=== PATIENT | female | born 1990 | race Caucasian/White ===

== ENCOUNTER 2019-07-05 16:07 | Observation (INO) ==
--- NOTE | 2019-07-05 16:27 | ERNOTE ---
ER Female HPI Date of Service: 07/05/19 Stated Complaint: Abdominal pain w/bleeding since am Presenting Symptoms: pelvic pain Time Seen by Provider: 07/05/19 16:23 Source: patient Exam Limitations: no limitations Immunizations: IMMUNIZATION HX Immunizations Up to Date No History of Influenza Vaccine No Hx Pneumococcal Vaccination No Allergies/Adverse Reactions: Allergies No Known Allergies Allergy (Unverified 07/05/19 16:16) Home Medications: HOME MEDICATIONS NK 07/05/19 [Last Taken Unknown] Pain Score #1 Pain Score: 10 - History of Present Illness Narrative: 29 yr old G4, P1, SA3 female with history of ectopic in 2006 with subsequent rupture of the related tube - doesn't know which side, and D & C presents with abdominal pain that began 2 hrs ago. Describes this as intermittent cramping that she rates 10/10. Denies any difficulty in urination. Last BM was yesterday. LMP was one month ago and last only 2 days. States she started having right sided low back pain last night. Denies any aggravating or alleviating factors. She is sexually active with a single partner. Denies any control. Reports decreased appetite. Last ate yesterday. Last drank 5 hrs ago. Date (Duration): 07/05/19 Time (Timing): 16:24 Timing: Present: intermittent Quality: Present: severe, cramping Onset Location: Present: other - lower pelvis region bilaterally, right worse than left Radiation: Present: none Activities at Onset: Present: none Prior Abdominal Problems: Present: none Sexual Decherd History: Present: single partner Modifying Factors - (Improves): Present: other - nothing Modifying Factors - (Worsens): Present: other - nothing Associated Symptoms: Present: abdominal pain - lower bilateral , low back pain - right sided . Absent: fever/chills, dysuria, urinary frequency, loss of bladder control Review of Systems - Review of Systems Constitutional: Absent: recent illness, fever, diaphoresis EYE: Present: no symptoms reported ENT: Present: no symptoms reported Respiratory: Present: no symptoms reported Cardiology: Present: no symptoms reported Gastrointestinal/Abdominal: Present: nausea, vomiting, abdominal pain, eating less, drinking less. Absent: diarrhea Genitourinary: Present: other - Noticed blood on toilet paper when she wiped after urinating. . Absent: pain, dysuria Musculoskeletal: Present: back pain - right side Skin: Present: no symptoms reported Neurological: Present: no symptoms reported Endocrine: Present: no symptoms reported Hematologic/Lymphatic: Present: no symptoms reported Psych: Present: no symptoms reported Medical History (Updated 07/05/19 @ 16:17 by Chandler Vines RN) Hx of ectopic Surgical History: Surgical History (Updated 07/05/19 @ 16:17 by Chandler Vines RN) Hx of dilation and curettage Social History: (Last Reviewed 07/05/19 @ 16:57 by RAYNE Mazariegos) Tobacco: Smoking Status: Current every day smoker tobacco type: cigarettes Smoking cigarettes per day: 5 Alcohol: alcohol intake: current alcohol intake frequency: holiday/special occasion Substance Use: substance use type: does not use Physical Exam - Physical Exam General Appearance: Present: wd/wn, alert, no apparent distress Head Exam: Present: normal inspection, no evidence of injury Eye Exam: Normal inspection: bilateral, PERRL: bilateral, EOMI: bilateral Ears, Nose, Throat: Present: normal except - - tongue piercing . Absent: dry mucous membranes Neck: Present: normal inspection Respiratory: Present: no respiratory distress, normal breath sounds, no accessory muscle use, chest nontender, lungs clear Cardiovascular/Chest: Present: regular rate, rhythm, no murmur Gastrointestinal/Abdominal: Present: soft, tenderness - Tenderness to palpation over the mid abdomen and lower abdomen bilaterally, right > left , abnormal bowel sounds - decreased Pelvic Exam: Present: deferred - until after the ultrasound is completed. , other - Normal external female genitalia. Dried blood at the vaginal introitus. Large dark clot noted on her pad. No active bleeding noted. Back Exam: Present: normal inspection, normal range of motion, CVA tenderness (R) Extremity Exam: Present: normal inspection, normal range of motion, no edema Neurological Exam: Present: alert, oriented, normal mood/affect, no motor/sensory deficits Skin Exam: Present: normal color, warm/dry Progress - Results and Orders Patient's Lab Results:: I have reviewed the patient's lab results. Results and Orders: Laboratory Tests 07/05/19 16:35 WBC 23.4 H RBC 3.25 L Hgb 10.3 L Plt Count 274 Laboratory Tests 07/05/19 07/05/19 16:35 16:35 Sodium 135 Potassium 3.9 Carbon Dioxide 21.6 L Anion Gap 15.3 H BUN 8 Creatinine 0.61 BUN/Creatinine Ratio 13.1 Random Glucose 88 Calcium 8.4 Total Bilirubin 0.4 AST 18 ALT 20 Alkaline Phosphatase 64 Albumin 3.1 L Amylase 22 L Lipase 63 L Serum HCG, Qual Positive H - Vital Signs Patient's Vital Signs:: I have reviewed the patient's vital signs. Vital Signs: Vital Signs 07/05/19 16:08 Temperature 36.8 C Pulse Rate 98 Respiratory Rate 20 Blood Pressure 127/73 O2 Sat by Pulse Oximetry 99 - Progress/Reassessment Chief Complaint: Genitourinary Problem Progress Note-Subjective: 07/05/19 17:54 Test results reviewed with patient. Ultrasound called in. The limited radiology technician came back over to report she is seeing a 17 - 18 week viable that is entering into the vaginal canal. I notified Dr. Guzman and asked her to come in. She asked that the patient be moved over to labor and delivery. The patient went straight to OB from ultrasound. - Transfer of Care Physician Sign Out: Jacuqe Curry Brief History: SA 3 29 yr old female with intermittent abdominal cramping. LMP last month only two days. HCG Positive. Quantitative 12,276. Ultrasound reveals 18 week fetus entering the vaginal canal. Receiving Physician: Es Guzman Pending Results: Physician/consult arrival Expected Disposition: Admit Plan - Plan Plan: Patient transferred to OB from ultrasound to Dr Guzman's care. Departure Clinical Impression: 18 weeks gestation of Active labor Qualifiers: Fetus number: single or unspecified fetus Qualified Code(s): O60.10X0 - labor with delivery, unspecified trimester, not applicable or unspecified - Departure Disposition: Still a patient Condition: Good Referrals: NONE,NONE [Staff Physician] -
[2019-07-05] MEDS ORDERED: NORMAL SALINE 1,000 ML IV ONE (16:28)
[2019-07-05] MEDS ORDERED: HYDROmorphone HCL 1 MG/ML DISP.SYRIN IV ONE ×2 (16:30→17:25)
[2019-07-05 16:42] LABS: Hematocrit 30.3 % (37.0-47.0); Hemoglobin 10.3 gm/dL (12.5-16.0); Mean Cell Volume 93.2 fl (78-100); Mean Corpuscular Hemoglobin 31.7 pg (27-31); Mean Platelet Volume 9.8 fl (8-12.5); Platelet Count 274 K/mm3 (150-450); Red Blood Count 3.25 M/mm3 (4.2-5.4); Red Cell Distribution Width 12.7 % (11.5-14.0); White Blood Count 23.4 K/mm3 (4.0-10.5)
[2019-07-05 16:49] LABS: Total Cells Counted 100
[2019-07-05] MEDS ORDERED: ONDANSETRON HCL/PF 2 MG/ML VIAL IV ONE (16:50)
[2019-07-05 16:54] LABS: Albumin * 3.1 gm/dl (3.4-5.0); Anion Gap 15.3 mmol/L (6.8-13.8); BUN/Creatinine Ratio 13.1 (9.0-21.6); Bilirubin, Total 0.4 mg/dL (0.0-1.1); Ca. Corrected For Albumin 8.8 mg/dL (8.4-10.2); Calcium * 8.4 mg/dL (7.9-10.9); Carbon Dioxide 21.6 mmol/L (24-32.6); Potassium 3.9 mmol/L (3.4-4.6); Total Protein 6.8 gm/dL (6.2-8.2)
[2019-07-05 17:11] LABS: Lymphocyte 5 % (20-51); Monocyte 3 % (0-9); Neutrophil 92 % (42-75); Neutrophil # 21.5 K/mm3 (1.3-6.0); Platelet Estimate Normal (NORMAL); RBC Morphology Normal (NORMAL)
--- NOTE | 2019-07-05 19:16 | HP ---
Chief Complaint - Chief Complaint Date of Service: 07/05/19 Time of Service: 19:03 Chief Complaint: Vaginal bleeding and passing clots. Patient did not know she was History of Present Illness: 29 year old at 17w 5d by an ultrasound performed in the emergency department. The ultrasound in the emergency department showed that there was no measurable cervix and the baby was breech and in the ABRIL. The patient reported cramping and vaginal bleeding all day. Denied fever, chills, nausea, vomiting, diarrhea. Medical History (Updated 07/05/19 @ 18:02 by RAYNE Mazariegos) Hx of ectopic Surgical History: Surgical History (Updated 07/05/19 @ 16:17 by Chandler Vines RN) Hx of dilation and curettage Social History: (Last Reviewed 07/05/19 @ 19:07 by Es Guzman MD) Tobacco: Smoking Status: Current every day smoker tobacco type: cigarettes Smoking cigarettes per day: 5 Alcohol: alcohol intake: current alcohol intake frequency: holiday/special occasion Substance Use: substance use type: does not use Review Of Systems (GEN) - Review of Systems Generalized/Overall Review: Present: No Symptoms Reported EENTM: Present: No Symptoms Reported Respiratory: Present: No Symptoms Reported Cardiac: Present: No Symptoms Reported Abdominal: Present: Abdominal Pain Genitourinary: Present: Other - vaginal bleeding Musculoskeletal: Present: No Symptoms Reported Neurological: Present: No Symptoms Reported Skin: Present: No Symptoms Reported Endocrine: Present: No Symptoms Reported Immunizations: IMMUNIZATION HX Immunizations Up to Date No History of Influenza Vaccine No Hx Pneumococcal Vaccination No Allergies/Adverse Reactions: Allergies Allergy/AdvReac Type Severity Reaction Status Date / Time No Known Allergies Allergy Unverified 07/05/19 16:16 Home Medications: HOME MEDICATIONS NK 07/05/19 [Last Taken Unknown] Exam - Exam Vital Signs: Vital Signs - Last Taken Temp 36.8 C 07/05/19 16:08 Pulse 83 07/05/19 17:33 Resp 18 07/05/19 17:33 BP 120/72 07/05/19 17:33 Pulse Ox 100 07/05/19 17:33 Constitutional: Present: Alert, Oriented x3, Cooperative, No distress Neck: Present: supple, normal inspection Breasts: Present: Exam deferred Respiratory: Present: lungs clear, normal breath sounds Cardiovascular/Chest: Present: regular rate, rhythm, no murmur Abdomen: Present: soft, nontender, nondistended /Rectal: Present: Other - SSE: several clots were visualized, soon after presentation the patient ruptured her membranes spontaneously. With the speculum in place the baby delivered breech. Extremity: Present: non-tender, no calf tenderness Skin Exam: Present: normal color, warm/dry, no cyanosis Appearance: Present: appropriate appearance Eye contact: Present: cooperative Thoughts: Present: normal thought pattern Diagnostic Studies: Abnormal Lab Results 07/05/19 07/05/19 07/05/19 Range/Units 16:35 16:35 16:35 WBC 23.4 H (4.0-10.5) K/mm3 RBC 3.25 L (4.2-5.4) M/mm3 Hgb 10.3 L (12.5-16.0) gm/dL Hct 30.3 L (37.0-47.0) % MCH 31.7 H (27-31) pg Neutrophils % (Manual) 92 H (42-75) % Lymphocytes % (Manual) 5 L (20-51) % Neutrophils # (Manual) 21.5 H (1.3-6.0) K/mm3 Lymphocytes # (Manual) 1.2 L (1.5-3.5) k/mm3 Carbon Dioxide 21.6 L (24-32.6) mmol/L Anion Gap 15.3 H (6.8-13.8) mmol/L Albumin 3.1 L (3.4-5.0) gm/dl Amylase 22 L (25-115) U/L Lipase 63 L (73-393) U/L Serum HCG, Qual Positive H (NEGATIVE) Maternal Serum HCG (0-6) mIU/mL 07/05/19 Range/Units 17:00 WBC (4.0-10.5) K/mm3 RBC (4.2-5.4) M/mm3 Hgb (12.5-16.0) gm/dL Hct (37.0-47.0) % MCH (27-31) pg Neutrophils % (Manual) (42-75) % Lymphocytes % (Manual) (20-51) % Neutrophils # (Manual) (1.3-6.0) K/mm3 Lymphocytes # (Manual) (1.5-3.5) k/mm3 Carbon Dioxide (24-32.6) mmol/L Anion Gap (6.8-13.8) mmol/L Albumin (3.4-5.0) gm/dl Amylase (25-115) U/L Lipase (73-393) U/L Serum HCG, Qual (NEGATIVE) Maternal Serum HCG 55052 H (0-6) mIU/mL Laboratory Results WBC 23.4 K/mm3 (4.0-10.5) H 07/05/19 16:35 RBC 3.25 M/mm3 (4.2-5.4) L 07/05/19 16:35 Hgb 10.3 gm/dL (12.5-16.0) L 07/05/19 16:35 Hct 30.3 % (37.0-47.0) L 07/05/19 16:35 MCV 93.2 fl (78-100) 07/05/19 16:35 MCH 31.7 pg (27-31) H 07/05/19 16:35 MCHC 34.0 g/dl (32-36) 07/05/19 16:35 RDW 12.7 % (11.5-14.0) 07/05/19 16:35 Plt Count 274 K/mm3 (150-450) 07/05/19 16:35 MPV 9.8 fl (8-12.5) 07/05/19 16:35 92 % (42-75) H 07/05/19 16:35 5 % (20-51) L 07/05/19 16:35 3 % (0-9) 07/05/19 16:35 21.5 K/mm3 (1.3-6.0) H 07/05/19 16:35 1.2 k/mm3 (1.5-3.5) L 07/05/19 16:35 0.7 k/mm3 (0.0-1.0) 07/05/19 16:35 Normal (NORMAL) 07/05/19 16:35 RBC Morphology Normal (NORMAL) 07/05/19 16:35 Sodium 135 mmol/L (132-142) 07/05/19 16:35 135 mmol/L (130-142) 07/05/19 16:35 Potassium 3.9 mmol/L (3.4-4.6) 07/05/19 16:35 Chloride 102 mmol/L (97-106) 07/05/19 16:35 Carbon Dioxide 21.6 mmol/L (24-32.6) L 07/05/19 16:35 15.3 mmol/L (6.8-13.8) H 07/05/19 16:35 BUN 8 mg/dL (3-23) 07/05/19 16:35 0.61 mg/dL (0.4-1.4) 07/05/19 16:35 Est GFR (Non-Af Amer) 122 mL/min (60-130) 07/05/19 16:35 13.1 (9.0-21.6) 07/05/19 16:35 88 mg/dL (70-110) 07/05/19 16:35 Calcium 8.4 mg/dL (7.9-10.9) 07/05/19 16:35 Calcium Adj for Albumin 8.8 mg/dL (8.4-10.2) 07/05/19 16:35 0.4 mg/dL (0.0-1.1) 07/05/19 16:35 AST 18 U/L (0-48) 07/05/19 16:35 ALT 20 U/L (19-67) 07/05/19 16:35 64 U/L (50-170) 07/05/19 16:35 6.8 gm/dL (6.2-8.2) 07/05/19 16:35 3.1 gm/dl (3.4-5.0) L 07/05/19 16:35 Amylase 22 U/L (25-115) L 07/05/19 16:35 63 U/L (73-393) L 07/05/19 16:35 Serum HCG, Qual Positive (NEGATIVE) H 07/05/19 16:35 58433 mIU/mL (0-6) H 07/05/19 17:00 Blood Type A Positive 07/05/19 17:30 Rh Phenotype Rh positive 07/05/19 17:30 Antibody Screen Negative 07/05/19 17:30 Assessment/Plan - Narrative Narrative: 29 year old @ 17w 5d by an ultrasound performed in the emergency department The ultrasound showed no measurable cervix The patient complained of a strong contraction and subsequently ruptured her membranes. The fluid was titus colored I then performed a speculum exam and the fetus delivered through the speculum The placenta is retained as expected for this gestational age. Pitocin currently being administered. The patient pushed two big clots out but the placenta remains in place. Will proceed with suction D&C to remove the placenta. All risks, benefits, and alternatives of the procedure were explained to the patient and the patient consented to the procedure.
--- NOTE | 2019-07-05 19:22 | ANES ---
Anesthesia Pre Procedure Eval Vitals/Labs: Last Vital Signs Temp 36.8 C 07/05/19 16:08 Pulse 83 07/05/19 17:33 Resp 18 07/05/19 17:33 BP 120/72 07/05/19 17:33 Pulse Ox 100 07/05/19 17:33 HOME MEDICATIONS NK 07/05/19 [Last Taken Unknown] Allergies/Adverse Reactions: Allergies Allergy/AdvReac Type Severity Reaction Status Date / Time No Known Allergies Allergy Unverified 07/05/19 16:16 - Planned Procedure Planned Procedure: D&C Medication List Reviewed:: Yes Allergies Verified: Yes Medical History (Updated 07/05/19 @ 18:02 by RAYNE Mazariegos) Hx of ectopic Surgical History (Updated 07/05/19 @ 16:17 by Chandler Vines RN) Hx of dilation and curettage - Family Anesthesia History Family History:: no untoward family reactions to anesthesia, no familial bleeding tendencies, no family history of clotting disorders, no family history of premature - Airway/Neck/Teeth Within Normal Limits:: Yes Teeth Condition: intact Mallampatti Score: 1 Thyromental (T-M) distance: > 6 cm Mandibulo Hyoid distance: > 3 cm - Respiratory Respiratory Physical: lungs clear Smoking Status: Current every day smoker Discussed smoking cessation including day of surgery: No Sleep Apnea currently treated: No Sleep Apnea by current assessment: No Discussed Risks/Treatment of AI: No - Cardiovascular Tolerate Activity: Good Heart Sounds: S1 & S2, Regular - Anesthesia Assessment and Plan ASA Class: PS, II Anesthesia Type Plan: MAC
[2019-07-05] MEDS ORDERED: fentaNYL CITRATE/PF 50 MCG/ML AMPUL ONE (19:25)
[2019-07-05] MEDS ORDERED: LIDOCAINE HCL 20 ML VIAL ONE (19:25)
[2019-07-05] MEDS ORDERED: PROPOFOL VIAL IV ONE (19:26)
[2019-07-05] MEDS ORDERED: ceFAZolin SODIUM/DEXTROSE,ISO 2 GM/50 ML BAG IV ONE (19:26)
[2019-07-05] MEDS ORDERED: LIDOCAINE HCL/EPINEPHRINE 30 ML VIAL IJ ONE (19:27)
[2019-07-05] MEDS ORDERED: BISACODYL 10 MG SUPP.RECT RC PRN (19:33)
[2019-07-05] MEDS ORDERED: BENZOCAINE/MENTHOL 81 SPRAY CAN TP PRN (19:33)
[2019-07-05] MEDS ORDERED: GLYCERIN/WITCH HAZEL LEAF 40 APPL BOX TP PRN (19:33)
[2019-07-05] MEDS ORDERED: HYDROCORTISONE 30 APPL TUBE TP PRN (19:33)
[2019-07-05] MEDS ORDERED: SENNOSIDES 8.6 MG TABLET PO PRN (19:33)
[2019-07-05] MEDS ORDERED: OXYTOCIN/DEXTROSE 5%-WATER 30 UNITS/500 ML BAG IV ONE (19:33)
[2019-07-05] MEDS ORDERED: diphenhydrAMINE HCL 25 MG CAPSULE PO PRN (19:33)
--- NOTE | 2019-07-05 20:09 | OR ---
Operative Report - Dictated Report Narrative: Preoperative diagnosis: retained placenta s/p SAB at 17w 5d Postoperative diagnosis: delivery of intact placenta Procedure: Exam under anesthesia followed by delivery of the placenta Anesthesia: MAC Description of the procedure: The patient was taken to the operating room where MAC anesthesia was induced. Prophylactic antibiotics administered (2 grams of Ancef). A sterile speculum was placed in the vagina and the placenta was noted to the in the vagina. The speculum was removed and the placenta was removed entirely by gentle traction on the umbilical cord. The placenta appeared intact. EBL: 10 mL Complications: none Specimens: placenta
--- NOTE | 2019-07-05 20:24 | ANES ---
Post Anesthesia Discharge - Transfer of Care Transfer of Care handoff given to nurse: Yes - Discharge from PACU Discharge from PACU when meets criteria: Yes - Discharge to ASU Discharge to ASU-no complications/pt stable: Yes
--- NOTE | 2019-07-05 20:24 | ANES ---
Post Anesthesia Assessment - Vital Signs Vitals: Last Vital Signs Temp 36.8 C 07/05/19 16:08 Pulse 83 07/05/19 17:33 Resp 18 07/05/19 17:33 BP 120/72 07/05/19 17:33 Pulse Ox 100 07/05/19 17:33 Airway Patency: Normal - Mental Status Level Of Consciousness: Awake - Pain Level Pain Score: 0 - N/V Assessment Nausea/Vomiting Presence: None Dehydration:: No
[2019-07-05] MEDS ORDERED: RINGER'S SOLUTION,LACTATED 1,000 ML IV PRN (20:42)
[2019-07-05] MEDS ORDERED: MEDROXYPROGESTERONE ACET 150 MG/ML SYRG IM ONE (20:46)
[2019-07-05] MEDS: HYDROcodone/ACETAMINOPHEN 1 EACH TABLET PO PRN (20:50)
[2019-07-05] MEDS: IBUPROFEN 800 MG TABLET PO PRN (20:50)
[2019-07-05] MEDS ORDERED: DOCUSATE SODIUM 100 MG CAPSULE PO SCH (21:00)
[2019-07-06] MEDS: HYDROcodone/ACETAMINOPHEN 1 EACH TABLET PO PRN (00:32)
[2019-07-06 05:41] LABS: Hemoglobin 8.5 gm/dL (12.5-16.0); Mean Cell Volume 94.7 fl (78-100); Mean Corpuscular Hemoglobin 32.2 pg (27-31); Mean Platelet Volume 9.7 fl (8-12.5); Neutrophil # 13.5 K/mm3 (1.3-6.0); Neutrophil % 81.2 % (42-75.0); Platelet Count 194 K/mm3 (150-450); Red Blood Count 2.64 M/mm3 (4.2-5.4); Red Cell Distribution Width 12.8 % (11.5-14.0); White Blood Count 16.6 K/mm3 (4.0-10.5)
[2019-07-06 06:13] VITALS: BP 107/52
[2019-07-06] MEDS: IBUPROFEN 800 MG TABLET PO PRN (06:56)
[2019-07-06 08:17] LABS: Urine Bilirubin Negative (NEGATIVE); Urine Blood 250 /ul (NEGATIVE); Urine Ketone Negative (NEGATIVE); Urine Nitrite Negative (NEGATIVE); Urine Protein 100 mg/dL (NEGATIVE); Urine Specific Gravity >=1.030 SP.GR. (1.005-1.010); Urine Urobilinogen Normal (NORMAL)
[2019-07-06 08:25] LABS: Urine Appearance Cloudy (CLEAR); Urine Bacteria 1+; Urine Color Red; Urine RBC >50 /hpf (0-5); Urine WBC 25-50 /hpf (0-5)
--- NOTE | 2019-07-06 08:45 | PN ---
Subjective - Date and Time Seen Date: 07/06/19 Time: 08:36 Subjective Narrative: The patient reports her vaginal bleeding is much improved this morning Objective Objective Narrative: See vital signs - Review of Systems Generalized/Overall Review: Reports: No Symptoms Reported EENTM: Reports: No Symptoms Reported Respiratory: Reports: No Symptoms Reported Cardiac: Reports: No Symptoms Reported Abdominal: Denies: Abdominal Pain Genitourinary Symptoms: Reports: Other - vaginal bleeding Musculoskeletal Complaints: Reports: No Symptoms Reported Neurological: Reports: No Symptoms Reported Skin: Reports: No Symptoms Reported Endocrine: Reports: No Symptoms Reported - Vitals Vitals: Last Vital Signs Temp 36.9 C 07/06/19 06:11 Pulse 73 07/06/19 06:11 Resp 18 07/06/19 06:11 BP 107/52 07/06/19 06:11 Pulse Ox 97 07/06/19 06:11 - Abnormal Lab Findings Abnormal Lab Findings: Abnormal Lab Results 07/05/19 07/05/19 07/05/19 Range/Units 16:35 16:35 16:35 WBC 23.4 H (4.0-10.5) K/mm3 RBC 3.25 L (4.2-5.4) M/mm3 Hgb 10.3 L (12.5-16.0) gm/dL Hct 30.3 L (37.0-47.0) % MCH 31.7 H (27-31) pg Immature Gran % (Auto) (0.001-0.429) % Immature Gran # (Auto) (0.000-0.0310) K/mm3 Neutrophils % (42-75.0) % Neutrophils % (Manual) 92 H (42-75) % Lymphocytes % (20-51) % Lymphocytes % (Manual) 5 L (20-51) % Neutrophils # (1.3-6.0) K/mm3 Neutrophils # (Manual) 21.5 H (1.3-6.0) K/mm3 Lymphocytes # (Manual) 1.2 L (1.5-3.5) k/mm3 Carbon Dioxide 21.6 L (24-32.6) mmol/L Anion Gap 15.3 H (6.8-13.8) mmol/L Albumin 3.1 L (3.4-5.0) gm/dl Amylase 22 L (25-115) U/L Lipase 63 L (73-393) U/L Serum HCG, Qual Positive H (NEGATIVE) Urine Protein (NEGATIVE) mg/dL Urine Blood (NEGATIVE) /ul Prot Sulfosalicylic Acd (0) mg/dL Ur Leukocyte Esterase (NEGATIVE) /ul Urine RBC (0-5) /hpf Urine WBC (0-5) /hpf Ur Epithelial Cells (0-5) /hpf Urine Bacteria (NONE) Maternal Serum HCG (0-6) mIU/mL 07/05/19 07/06/19 07/06/19 Range/Units 17:00 05:25 08:00 WBC 16.6 H D (4.0-10.5) K/mm3 RBC 2.64 L (4.2-5.4) M/mm3 Hgb 8.5 L (12.5-16.0) gm/dL Hct 25.0 L (37.0-47.0) % MCH 32.2 H (27-31) pg Immature Gran % (Auto) 0.60 H (0.001-0.429) % Immature Gran # (Auto) 0.10 H (0.000-0.0310) K/mm3 Neutrophils % 81.2 H (42-75.0) % Neutrophils % (Manual) (42-75) % Lymphocytes % 13.1 L (20-51) % Lymphocytes % (Manual) (20-51) % Neutrophils # 13.5 H (1.3-6.0) K/mm3 Neutrophils # (Manual) (1.3-6.0) K/mm3 Lymphocytes # (Manual) (1.5-3.5) k/mm3 Carbon Dioxide (24-32.6) mmol/L Anion Gap (6.8-13.8) mmol/L Albumin (3.4-5.0) gm/dl Amylase (25-115) U/L Lipase (73-393) U/L Serum HCG, Qual (NEGATIVE) Urine Protein 100 H (NEGATIVE) mg/dL Urine Blood 250 H (NEGATIVE) /ul Prot Sulfosalicylic Acd 2+ H (0) mg/dL Ur Leukocyte Esterase 75 H (NEGATIVE) /ul Urine RBC >50 H (0-5) /hpf Urine WBC 25-50 H (0-5) /hpf Ur Epithelial Cells >25 H (0-5) /hpf Urine Bacteria 1+ H (NONE) Maternal Serum HCG 45532 H (0-6) mIU/mL - Exam Constitutional: Present: Alert, Oriented x3, Cooperative, No distress Abdomen: Present: soft, nontender, nondistended - fundus is firm Extremity: Present: non-tender, no calf tenderness Skin Exam: Present: normal color, warm/dry, no cyanosis Appearance: Present: appropriate appearance Eye contact: Present: cooperative Thoughts: Present: normal thought pattern Assessment/Plan Plan Narrative: 29 year old s/p delivery of a 17w 5d fetus followed by delivery of the placenta in the operating room. The patient had passed several large clots prior to delivery of the placenta and that is why she was taken to the operating room. The placenta was in the vagina and delivered in the OR with gently traction on the umbilical cord. Therefore, there was no need to perform a D&C. Today, the patient's bleeding is minimal. The leukocytosis has improved. The patient is anemic likely a combination of bleeding all day at home and also the blood loss prior to delivery of the placenta. Vital signs are normal. The patient received Depo-Provera yesterday. Follow-up in 4 weeks or sooner for any other concerns
--- NOTE | 2019-07-06 08:51 | DS ---
(1) Chorioamnionitis in second trimester Problem: Acute Date of Discharge:: 07/06/19 Description of Stay: The patient presented to the ED and an ultrasound was done which showed a 17w 5d gestation in the ABRIL with no measurable cervix. The patient was transferred to labor and delivery. Upon my arrival the patient had a painful contraction that resulted in rupture of membranes. Following this, I placed a speculum and the fetus delivered through the speculum in breech presentation. The cord was clamped and cut. A cord clamp was placed on the placenta to prevent excessive traction. The patient was taken to the operating room for a retained placenta. The placenta was delivered in the OR without the need for D&C. Vaginal bleeding is minimal today. Procedures Performed: none Results and Findings: Lab Pending Results 07/05/19 16:35: WBC 23.4 H, RBC 3.25 L, Hgb 10.3 L, Hct 30.3 L, MCV 93.2, MCH 31.7 H, MCHC 34.0, RDW 12.7, Plt Count 274, MPV 9.8, Neutrophils % (Manual) 92 H, Lymphocytes % (Manual) 5 L, Monocytes % (Manual) 3, Neutrophils # (Manual) 21.5 H, Lymphocytes # (Manual) 1.2 L, Monocytes # (Manual) 0.7, Platelet Estimate Normal, RBC Morphology Normal 07/05/19 16:35: Sodium 135, Plasma Sodium 135, Potassium 3.9, Chloride 102, Carbon Dioxide 21.6 L, Anion Gap 15.3 H, BUN 8, Creatinine 0.61, Est GFR (Non-Af Amer) 122, BUN/Creatinine Ratio 13.1, Random Glucose 88, Calcium 8.4, Calcium Adj for Albumin 8.8, Total Bilirubin 0.4, AST 18, ALT 20, Alkaline Phosphatase 64, Total Protein 6.8, Albumin 3.1 L, Amylase 22 L, Lipase 63 L 07/05/19 16:35: Serum HCG, Qual Positive H 07/05/19 17:00: Maternal Serum HCG 57907 H 07/05/19 17:30: Blood Type A Positive, Rh Phenotype Rh positive, Antibody Screen Negative 07/06/19 05:25: WBC 16.6 H D, RBC 2.64 L, Hgb 8.5 L, Hct 25.0 L, MCV 94.7, MCH 32.2 H, MCHC 34.0, RDW 12.8, Plt Count 194, MPV 9.7, Immature Gran % (Auto) 0.60 H, Immature Gran # (Auto) 0.10 H, Neutrophils % 81.2 H, Lymphocytes % 13.1 L, Monocytes % 4.1, Eosinophils % 0.8, Basophils % 0.2, Nucleated RBC % 0.0, Neutrophils # 13.5 H, Lymphocytes # 2.18, Monocytes # 0.7, Eosinophils # 0.1, Absolute Basophils 0.0 07/06/19 08:00: Urine Color Red, Urine Appearance Cloudy, Urine pH 6.0, Ur Specific [place] >=1.030, Urine Protein 100 H, Urine Glucose (UA) Negative, Urine Ketones Negative, Urine Blood 250 H, Urine Nitrate Negative, Urine Bilirubin Negative, Prot Sulfosalicylic Acd 2+ H, Urine Urobilinogen Normal, Ur Leukocyte Esterase 75 H, Urine RBC >50 H, Urine WBC 25-50 H, Ur Epithelial Cells >25 H, Urine Bacteria 1+ H, Urine Culture Comments Culture to follow Discharge Location: Home Disposition: Home self-care Condition: Good Discharge Activity: Activity as tolerated Discharge Diet: General/regular food Additional Patient Instructions (free text): Follow-up in 4 weeks or sooner for any other concerns Complete Home Medications List: Complete Home Medication List: NK 07/05/19
[2019-07-06 08:56] LABS: Urine Barbiturate Negative (NEGATIVE); Urine Benzodiazepines Negative (NEGATIVE); Urine PCP Negative (NEGATIVE)
[2019-07-06 08:57] LABS: Cocaine Ur Positive (NEGATIVE); Urine Opiates Positive (NEGATIVE); Urine THC Positive (NEGATIVE)
== END 2019-07-06 11:50 | disposition home or self-care (01) ==
LOC: ER 16:07 → INTOOBSV 18:08 → OB 18:08
PROVIDERS: ADMIT Obstetrics & Gynecology; ATTEND Obstetrics & Gynecology
CPT/HCPCS: 36415; 76815; 80053; 80307; 81001; 82150; 83690; 84702; 84703; 85007; 85025; 86850; 86901; 87086; 88305; 88307; 96365; 99285; G0378; J2405